=== PATIENT | male | born 1995 | race Caucasian/White ===

== ENCOUNTER 2018-08-13 10:45 | Emergency (ER) | payer BC ==
[2018-08-13 12:04] VITALS: BP 144/67
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
== END 2018-08-13 12:33 | disposition home or self-care (01) ==
LOC: UCCORT 10:45
DX: M25.562 Pain in left knee (principal); X50.1XXA Overexertion from prolonged static or awkward postures, initial encounter; Y93.89 Activity, other specified; Y92.410 Unspecified street and highway as the place of occurrence of the external cause; F17.210 Nicotine dependence, cigarettes, uncomplicated
CPT/HCPCS: 99211; G0463